=== PATIENT | male | born 1955 ===

== ENCOUNTER 2017-06-13 12:07 | Emergency (ER) | payer SELFPAY ==
[2017-06-13 12:24] VITALS: PULSE 78; RESP 16; TEMP 98; O2SAT 97
[2017-06-13 13:34] LABS: BASO # 0.1 K/uL (0.0-0.2); BASO % 0.7 % (0.0-2.0); EOS # 0.1 K/uL (0.0-0.7); EOS % 1.2 % (0.0-4.0); HEMOGLOBIN 15.8 g/dL (12.0-18.0); LYMPH # 1.9 K/uL (1.0-4.3); LYMPH % 24.8 % (20.0-40.0); MEAN CELL VOLUME 82.7 fl (80.0-94.0); MEAN CORPUSCULAR HEMOGLOBIN 27.8 pg (27.0-31.0); MEAN CORPUSCULAR HGB CONC 33.6 g/dL (33.0-37.0); MEAN PLATELET VOLUME 9.6 fl (7.2-11.7); MONO # 0.6 K/uL (0.0-0.8); MONO % 7.9 % (0.0-10.0); NEUT # 5.1 K/uL (1.8-7.0); NEUT % 65.4 % (50.0-75.0); NRBC % 0.1 % (0.0-0.0); RBC 5.67 Mil/uL (4.40-5.90); RED CELL DISTRIBUTION WIDTH 14.1 % (11.5-14.5); WHITE BLOOD COUNT 7.8 K/uL (4.8-10.8)
[2017-06-13 13:49] LABS: BLOOD UREA NITROGEN 16 mg/dl (9-20); CALCIUM 9.7 mg/dL (8.4-10.2); GFR AFRICAN-AMERICAN > 60; GFR NON-AFRICAN AMERICAN > 60
[2017-06-13 14:03] LABS: SQUAMOUS EPITHIAL 1 /hpf (0-5); URINE BACTERIA RARE (<OCC); URINE BILIRUBIN NEGATIVE (NEGATIVE); URINE BLOOD SMALL (NEGATIVE); URINE CLARITY CLEAR (Clear); URINE COLOR YELLOW (YELLOW); URINE GLUCOSE (UA) NEG (Normal); URINE LEUKOCYTE ESTERASE NEG Leu/uL (Negative); URINE PROTEIN NEGATIVE (NEGATIVE); URINE UROBILINOGEN 0.2-1.0 mg/dL (0.2-1.0)
--- NOTE | 2017-06-13 15:20 | ED PDOC ---
HPI: General Adult Time Seen by Provider: 06/13/17 12:29 Chief Complaint (Nursing): Abnormal Labs Chief Complaint (Provider): evaluation for polyuria and polydipsia History Per: Patient History/Exam Limitations: no limitations Onset/Duration Of Symptoms: Other (1 month) Current Symptoms Are (Timing): Still Present Additional Complaint(s): 61 year old male was referred by [facility] for evaluation for polyuria and polydipsia onset one month ago. Patient did not know he had diabetes or hypertension. Clinic told him he has high blood pressure but his blood sugar was normal. Also states his EKG was taken in the clinic. Denies headache, leg swelling, abdominal pain, chest pain, numbness, fever, or urinary problem. PMD: Magno Barrientos Past Medical History Reviewed: Historical Data, Nursing Documentation, Vital Signs Vital Signs: Last Vital Signs Temp 98 F 06/13/17 12:20 Pulse 78 06/13/17 12:20 Resp 16 06/13/17 12:20 BP 168/90 H 06/13/17 15:31 Pulse Ox 97 06/13/17 15:31 - Medical History PMH: No Chronic Diseases - Surgical History Surgical History: No Surg Hx - Family History Family History: States: Diabetes - Home Medications Home Medications: Ambulatory Orders Medication Instructions Recorded Lisinopril [Prinivil] 10 mg PO DAILY #30 tablet 06/13/17 - Allergies Allergies/Adverse Reactions: Allergies Allergy/AdvReac Type Severity Reaction Status Date / Time No Known Allergies Allergy Verified 06/13/17 12:20 Review of Systems ROS Statement: Except As Marked, All Systems Reviewed And Found Negative Constitutional: Positive for: Other (polydipsia). Negative for: Fever Cardiovascular: Negative for: Chest Pain Gastrointestinal: Negative for: Abdominal Pain Genitourinary Male: Positive for: Other (polyuria) Neurological: Negative for: Headache Physical Exam - Reviewed Nursing Documentation Reviewed: Yes Vital Signs Reviewed: Yes - Physical Exam Appears: Positive for: Well, Non-toxic, No Acute Distress Head Exam: Positive for: ATRAUMATIC, NORMAL INSPECTION, NORMOCEPHALIC Skin: Positive for: Normal Color, Warm, Dry Eye Exam: Positive for: EOMI, Normal appearance, PERRL ENT: Positive for: Normal ENT Inspection Neck: Positive for: Normal, Painless ROM, Supple. Negative for: Decreased ROM Cardiovascular/Chest: Positive for: Regular Rate, Rhythm. Negative for: Murmur Respiratory: Positive for: Normal Breath Sounds. Negative for: Decreased Breath Sounds, Accessory Muscle Use, Wheezing, Respiratory Distress Gastrointestinal/Abdominal: Positive for: Normal Exam, Bowel Sounds, Soft. Negative for: Tenderness, Guarding, Rebound Back: Positive for: Normal Inspection. Negative for: L CVA Tenderness, R CVA Tenderness Extremity: Positive for: Normal ROM. Negative for: Tenderness, Pedal Edema, Deformity Neurologic/Psych: Positive for: Alert, Oriented (x3), Gait (steady) - Laboratory Results Result Diagrams: 06/13/17 13:20 06/13/17 13:20 - ECG O2 Sat by Pulse Oximetry: 97 (RA) Pulse Ox Interpretation: Normal Medical Decision Making Medical Decision Making: Time: 1253 Initial Impression: Elevated blood pressure in primary office and polyuria and polydipsia Differential Diagnosis includes but is not limited to: Hypertension, Renal Failure, Diabetes Initial Plan: --BMP --Hemoglobin A1C --ED Urine Dipstick --CBC w/ Differential --senior technical editor --Urinalysis --Reevaluation Clinical Impression: Hypertension, Microscopic Hematuria Upon provider evaluation patient is medically stable, and requires no further treatment in the ED at this time. Patient will be discharged with Prinivil for high blood pressure. Counseling was provided and all questions were answered regarding diagnosis and need for follow up with PMD. There is agreement to discharge plan. Return if symptoms persist or worsen. Scribe Attestation: Documented by Rhea Gutierrez, acting as a scribe for Cosmo Mena MD Provider Scribe Attestation: All medical record entries made by the Scribe were at my direction and personally dictated by me. I have reviewed the chart and agree that the record accurately reflects my personal performance of the history, physical exam, medical decision making, and the department course for this patient. I have also personally directed, reviewed, and agree with the discharge instructions and disposition. Disposition - Clinical Impression Clinical Impression: Hypertension, Microscopic hematuria - Patient ED Disposition Is Patient to be Admitted: No - Disposition Referrals: [facility] [Outside] Disposition: Routine/Home Disposition Time: 15:00 Condition: GOOD Additional Instructions: Take your medications as instructed. Follow up with your PCP in 4-5 days. Prescriptions: Lisinopril [Prinivil] 10 mg PO DAILY #30 tablet Instructions: High Blood Pressure in Adults, Blood in the Urine (Hematuria), Adult (DC)
[2017-06-13 15:27] VITALS: BP 168/90
== END 2017-06-13 15:32 | disposition home or self-care (01) ==
LOC: H.ER 12:07
DX: I10 Essential (primary) hypertension (principal); R31.29 Other microscopic hematuria; R63.1 Polydipsia; E11.9 Type 2 diabetes mellitus without complications

== ENCOUNTER 2017-11-06 08:05 | Day surgery (SDC) | payer SELFPAY ==
[2017-11-06 09:18] VITALS: BMI 32.3
[2017-11-06 09:36] VITALS: RESP 18
--- NOTE | 2017-11-06 10:37 | CP.SDSHP ---
Same Day Surgery H & P - History Proposed Procedure: B/L thyroid nodule FNA Pre-Op Diagnosis: B/L thyroid nodules - Allergies Allergies: Allergies No Known Allergies Allergy (Verified 11/06/17 09:45) - Physical Exam Vital Signs: Vital Signs 11/06/17 11/06/17 11/06/17 09:35 09:38 10:01 Temperature 98.4 F 97.5 F L Pulse Rate 67 67 64 Respiratory 18 18 Rate Blood Pressure 156/91 H 128/74 O2 Sat by Pulse 98 Oximetry 11/06/17 10:35 Temperature Pulse Rate 76 Respiratory 18 Rate Blood Pressure 130/70 O2 Sat by Pulse Oximetry Short Stay Discharge - Short Stay Discharge Admitting Diagnosis/Reason for Visit: THYROID NODULE Disposition: HOME/ ROUTINE Referrals: Radha Gonzáles MD [Primary Care Provider] -
--- NOTE | 2017-11-06 10:38 | PCM.SURG1 ---
Surgeon's Initial Post Op Note - Surgeon's Notes Surgeon: Fadi [employer] Supervisor: None Type of Anesthesia: None Pre-Operative Diagnosis: B/L Thyroid nodules Operative Findings: B/L Thyroid nodules Post-Operative Diagnosis: B/L Thyroid nodules Operation Performed: B/L Thyroid nodules FNA Specimen/Specimens Removed: FNA samples from the largest thyroid nodules in the right and left lobes Estimated Blood Loss: EBL {In ML}: 1 Date of Surgery/Procedure: 11/06/17 Time of Surgery/Procedure: 10:30
[2017-11-06 11:44] VITALS: BP 145/86; PULSE 67; TEMP 98.5; O2SAT 99
== END 2017-11-06 11:45 | disposition home or self-care (01) ==
LOC: H.OPSURG 08:05
PROVIDERS: ATTEND Family Medicine
DX: E04.2 Nontoxic multinodular goiter (principal)